=== PATIENT | female | born 1940 | race Caucasian/White ===

== ENCOUNTER 2025-03-22 14:06 | Outpatient (CLI) | payer MEDICARE | END 2025-03-22 14:07 | disposition home or self-care (01) | LOC: BICRAD 14:06 → RAD 14:07 | PROVIDERS: ATTEND Internal Medicine | DX: D47.2 Monoclonal gammopathy (principal); M81.0 Age-related osteoporosis without current pathological fracture | CPT/HCPCS: 77075 ==